=== PATIENT | male | born 1935 | race Caucasian/White ===

== ENCOUNTER → 2018-06-23 | Day surgery (SDC) | payer OTHER ==
[~2018-06-23] MED LIST: Dextrose 5%-0.9% NaCl 1,000 ML IV SCH; LORazepam 2 MG/ML SDV IVPUSH ONE; Lactated Ringers 1,000 ML IV SCH; Propofol 200 MG/20 ML SDV ONE; fentaNYL 100 MCG/2 ML SDV ONE
--- NOTE | 2018-06-23 19:03 | EDM.PDOC ---
ED HPI GENERAL MEDICAL PROBLEM - General Chief Complaint: ENT Problem Stated Complaint: CAN'T SWALLOW/NAUSEA Time Seen by Provider: 06/23/18 18:50 Source of Information: Reports: Patient, RN History Limitations: Reports: No Limitations - History of Present Illness INITIAL COMMENTS - FREE TEXT/NARRATIVE: 83 yo male presents with inability to keep anything down since about noon today when he ate a piece of chicken. Had this problem in the past and was scoped and nothing abnormal was found on EGD. Has a hx of kidney transplant. Gets most of his health care at the [place]. Onset: Today Onset Date: 06/23/18 Onset Time: 12:00 Duration: Hour(s):, Constant Location: Reports: Neck, Chest (esophagus) Quality: Reports: Pressure Severity: Moderate Improves with: Reports: None Worsens with: Reports: None Context: Reports: Other (hx of prior esophageal obstructions.) Associated Symptoms: Reports: Chest Pain (esophageal pressure.), Nausea/ Vomiting (minimal nausea). 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) Upper Epigastric Pain Score (Numeric/FACES): 2 - Related Data Allergies Allergy/AdvReac Type Severity Reaction Status Date / Time Sulfa (Sulfonamide Allergy Rash Verified 06/23/18 18:27 Antibiotics) Home Meds: Home Meds Aspirin [Halfprin] 81 mg PO DAILY 10/22/14 [History] Mycophenolate Mofetil [Cellcept] 1,000 mg PO BID 10/22/14 [History] Ranitidine [Zantac] 150 mg PO BID 10/22/14 [History] cycloSPORINE [Cyclosporine] 50 mg PO DAILY 10/22/14 [History] cycloSPORINE [Cyclosporine] 75 mg PO BEDTIME 10/22/14 [History] predniSONE [Prednisone] 2.5 mg PO DAILY 10/22/14 [History] Allopurinol [Zyloprim] 1 tab PO BEDTIME 05/17/18 [History] Apixaban [Eliquis] 1 tab PO BID 05/17/18 [History] Insulin Glarg,Human.Rec.Analog [Lantus] 50 unit SUBCUT BEDTIME 05/17/18 [History ] Magnesium Oxide 1 tab PO DAILY 05/17/18 [History] Pravastatin [Pravachol] 40 mg PO BEDTIME 05/17/18 [History] predniSONE [Prednisone] 5 mg PO BEDTIME 05/17/18 [History] Past Medical History HEENT History: Reports: Cataract, Impaired Vision Cardiovascular History: Reports: Afib, High Cholesterol Gastrointestinal History: Reports: GERD Genitourinary History: Reports: Other (See Below) Other Genitourinary History: right kidney transplant 1998 Musculoskeletal History: Reports: Arthritis Endocrine/Metabolic History: Reports: Diabetes, Type II, Other (See Below) Other Endocrine/Metabolic History: 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 fri. from [place] [facility] (Cancer) History: Reports: Basal Cell Carcinoma Dermatologic History: Reports: Other (See Below) Other Dermatologic History: basal cell carcinoma - Past Surgical History HEENT Surgical History: Reports: Cataract Surgery GI Surgical History: Reports: Cholecystectomy, EGD Musculoskeletal Surgical History: Reports: Knee Replacement, Shoulder Surgery Social & Family History - Tobacco Use Smoking Status *Q: Never Smoker Second Hand Smoke Exposure: No - Caffeine Use Caffeine Use: Reports: Coffee, Tea - Recreational Drug Use Recreational Drug Use: No ED ROS ENT - Review of Systems Review Of Systems: See Below Constitutional: Reports: No Symptoms HEENT: Reports: No Symptoms Respiratory: Reports: No Symptoms Cardiovascular: Reports: No Symptoms Endocrine: Reports: No Symptoms GI/Abdominal: Reports: Difficulty Swallowing, Vomiting. Denies: Nausea : Reports: No Symptoms Musculoskeletal: Reports: No Symptoms Skin: Reports: No Symptoms Neurological: Reports: No Symptoms ED EXAM, ENT - Physical Exam Exam: See Below Exam Limited By: No Limitations General Appearance: Alert, WD/WN, No Apparent Distress Eye Exam: Bilateral Eye: Normal Inspection Ears: Normal External Exam, Normal Canal, Hearing Grossly Normal, Normal TMs Nose: Normal Inspection, Normal Mucousa, No Blood Mouth/Throat: Normal Inspection, Normal Lips, Normal Oropharynx Head: Atraumatic, Normocephalic Neck: Normal Inspection, Supple, Non-Tender Respiratory/Chest: No Respiratory Distress, Lungs Clear, Normal Breath Sounds, No Accessory Muscle Use Cardiovascular: Regular Rate, Rhythm, No Edema GI/Abdominal: Normal Bowel Sounds, Soft, Non-Tender, No Distention Back: Normal Inspection. No: CVA Tenderness (R), CVA Tenderness (L) Extremities: Normal Inspection, Normal Range of Motion, Non-Tender, No Pedal Edema Neurological: Alert, Oriented, CN II-XII Intact, Normal Cognition, No Motor/ Sensory Deficits Psychiatric: Normal Affect, Normal Mood Skin: Warm, Dry, Intact, Normal Color, No Rash Lymphatic: No Adenopathy Course - Vital Signs Text/Narrative:: Dr. Milad dozier @ [id number] Chicken removed in surgery, no apparent definite esophageal pathology identified to cause the obstruction. Last Recorded V/S: Last Vital Signs Temp 35.2 C 06/23/18 21:56 Pulse 73 06/23/18 21:56 Resp 16 06/23/18 21:56 BP 107/68 06/23/18 21:56 Pulse Ox 96 06/23/18 21:56 - Orders/Labs/Meds Orders: Active Orders 24 hr Category Date Time Status UA W/MICROSCOPIC [URIN] Stat Lab 06/23/18 18:54 Ordered Dextrose 5%-0.9% NaCl [Dextrose 5%-Normal Saline] 1,000 Med 06/23/18 19:45 Active ml IV ASDIRECTED Medication Orders Dextrose/Sodium Chloride (Dextrose 5%-Normal Saline) 1,000 mls @ 150 mls/hr IV ASDIRECTED SHARRON Last Admin: 06/23/18 19:50 Dose: 150 mls/hr Labs: Laboratory Tests 06/23/18 06/23/18 Range/Units 18:45 18:45 WBC 13.5 H (4.5-11.0) K/uL RBC 5.20 (4.30-5.90) M/uL Hgb 15.5 H (12.0-15.0) g/dL Hct 47.7 (40.0-54.0) % MCV 92 (80-98) fL MCH 30 (27-31) pg MCHC 33 (32-36) % Plt Count 213 (150-400) K/uL Sodium 140 (140-148) mmol/L Potassium 3.8 (3.6-5.2) mmol/L Chloride 105 (100-108) mmol/L Carbon Dioxide 28 (21-32) mmol/L Anion Gap 6.6 (5.0-14.0) mmol/L BUN 30 H (7-18) mg/dL Creatinine 1.7 H (0.8-1.3) mg/dL Est Cr Clr Drug Dosing 32.92 mL/min Estimated GFR (MDRD) 39 L (>60) Glucose 63 L (74-106) mg/dL Calcium 9.3 (8.5-10.1) mg/dL Meds: Medications Generic Name Dose Route Start Last Admin Trade Name Bhavin PRN Reason Stop Dose Admin Dextrose/Sodium Chloride 1,000 mls @ 150 mls/hr 06/23/18 19:45 06/23/18 19:50 Dextrose 5%-Normal Saline IV 150 mls/hr ASDIRECTED SHARRON Administration Discontinued Medications Generic Name Dose Route Start Last Admin Trade Name Bhavin PRN Reason Stop Dose Admin Fentanyl Confirm 06/23/18 20:38 Sublimaze Administered 06/23/18 20:39 Dose 100 mcg .ROUTE .STK-MED ONE Lactated Ringer's 1,000 mls @ 500 mls/hr 06/23/18 19:00 06/23/18 19:09 Ringers, Lactated IV 500 mls/hr ASDIRECTED SHARRON Administration Lorazepam 1 mg 06/23/18 18:55 06/23/18 19:10 Ativan IVPUSH 06/23/18 18:56 1 mg ONETIME ONE Administration Propofol Confirm 06/23/18 20:38 Diprivan 20 Ml Administered 06/23/18 20:39 Dose 200 mg .ROUTE .STK-MED ONE Propofol Confirm 06/23/18 21:03 Diprivan 20 Ml Administered 06/23/18 21:04 Dose 200 mg .ROUTE .STK-MED ONE Departure - Departure Time of Disposition: 22:30 Disposition: Home, Self-Care 01 Condition: Good Clinical Impression: Esophageal obstruction due to food impaction - Discharge Information *PRESCRIPTION DRUG MONITORING PROGRAM REVIEWED*: No *COPY OF PRESCRIPTION DRUG MONITORING REPORT IN PATIENT MARIANA: No Referrals: PCP,None [Primary Care Provider] - Forms: ED Department Discharge - My Orders Last 24 Hours: My Active Orders 06/23/18 18:54 UA W/MICROSCOPIC [URIN] Stat 06/23/18 19:45 Dextrose 5%-0.9% NaCl [Dextrose 5%-Normal Saline] 1,000 ml IV ASDIRECTED - Assessment/Plan Last 24 Hours: My Active Orders 06/23/18 18:54 UA W/MICROSCOPIC [URIN] Stat 06/23/18 19:45 Dextrose 5%-0.9% NaCl [Dextrose 5%-Normal Saline] 1,000 ml IV ASDIRECTED
--- NOTE | 2018-06-24 07:50 | OR ---
DATE OF PROCEDURE: 06/23/2018 PREOPERATIVE DIAGNOSIS: Obstructing esophageal foreign body, chicken. POSTOPERATIVE DIAGNOSES: 1. Obstructing esophageal foreign body, chicken. 2. Hiatal hernia. PROCEDURE: Esophagogastroduodenoscopy with removal of obstructing esophageal foreign body, chicken. SURGEON: Tae Stinson MD ANESTHESIA: IV anesthesia with monitored anesthesia care. INDICATION: This 83-year-old white male ate chicken today for lunch. He is unable to handle his secretions now. He presents to the emergency room and request was made for upper endoscopy to relieve his obstructing esophageal foreign body. Apparently, he had problems like this in the past, treated in [place] with nothing found as the etiology. I counseled him for upper endoscopy with possible biopsy and/or removal of any obstructing foreign bodies we encountered, and he gave his informed consent to proceed. DESCRIPTION OF PROCEDURE: The patient was placed in the left lateral decubitus position. IV anesthesia was administered by the Anesthesia Service. Time-out was held. The flexible video Olympus upper endoscope was passed through his mouth into esophagus. In the esophagus, we encountered some fluid and foreign body consistent with fragments of chicken. We aspirated the fluid free. We used multiple techniques to remove the chicken including a couple of baskets, a four-prong grasper, a three-prong grasper, and biopsy forceps. We did remove a lot of the material above the obstructing bolus of food. We reached the bolus of food. We broke it up with biopsy forceps and easily passed into the stomach. We passed the scope in the stomach, down into the duodenum, and then slowly withdrew it. The duodenum appeared unremarkable. Stomach appeared unremarkable. When we retroflexed in the stomach; however, we did notice a hiatal hernia. The scope was then straightened and brought up through the GE junction. This did not appear to be obviously strictured. The scope was then brought up through the remainder of the esophagus, which appeared clear, and was removed. He tolerated the procedure well. Tae Stinson MD /[id number]
== END ==
LOC: JP.ED 17:56 → JP.SDS 20:36
PROVIDERS: ATTEND Surgery
DX: T18.128A Food in esophagus causing other injury, initial encounter (principal); K44.9 Diaphragmatic hernia without obstruction or gangrene; I48.91 Unspecified atrial fibrillation; E78.00 Pure hypercholesterolemia, unspecified; E11.9 Type 2 diabetes mellitus without complications; M19.90 Unspecified osteoarthritis, unspecified site; Z88.0 Allergy status to penicillin; Z88.2 Allergy status to sulfonamides; Z79.4 Long term (current) use of insulin; Z79.82 Long term (current) use of aspirin; Z79.899 Other long term (current) drug therapy; X58.XXXA Exposure to other specified factors, initial encounter
CPT/HCPCS: 36415; 43247; 80048; 82962; 85027; 96361; 96374; 99284; J2060; J2704; J3010; J7120

== ENCOUNTER 2020-11-15 13:14 | Emergency (ER) | payer OTHER, MEDICARE ==
[2020-11-15] MEDS ORDERED: HYDROmorphone 0.5 MG/0.5 ML Syringe IVPUSH ONE ×2 (13:24→14:59)
--- NOTE | 2020-11-15 13:32 | EDM.PDOC ---
<Jason Rocha G - Last Filed: 11/15/20 17:24> ED HPI GENERAL MEDICAL PROBLEM - General Chief Complaint: Lower Extremity Injury/Pain Stated Complaint: MEDICAL VIA [facility]TH Time Seen by Provider: 11/15/20 13:15 Source of Information: Reports: Patient, Old Records, RN History Limitations: Reports: No Limitations - History of Present Illness INITIAL COMMENTS - FREE TEXT/NARRATIVE: 85 yo male brought in by EMS after a fall outside his home due to slipping on the ice. Has L leg external rotation, and pain with any movement of that L leg. Refused pain meds in the ambulance due to no pain at rest. Was not dizzy before he fell. No other injuries reported. PHx of renal transplant. [facility] most of [facility] care [facility] [place] [facility]. 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) - Related Data Allergies Allergy/AdvReac Type Severity Reaction Status Date / Time Sulfa (Sulfonamide Allergy Rash Verified 11/15/20 13:23 Antibiotics) Home Meds: Home Meds cycloSPORINE [Cyclosporine] 50 mg PO BID 10/22/14 [History] mycophenolate mofetiL [Cellcept] 750 mg PO BID 10/22/14 [History] Apixaban [Eliquis] 1 tab PO BID 05/17/18 [History] Insulin Glarg,Human.Rec.Analog [Lantus] 22 unit SUBCUT DAILY 05/17/18 [History] Magnesium Oxide 1 tab PO DAILY 05/17/18 [History] Pravastatin [Pravachol] 40 mg PO BEDTIME 05/17/18 [History] allopurinoL [Zyloprim] 1 tab PO BEDTIME 05/17/18 [History] predniSONE [Prednisone] 5 mg PO BEDTIME 05/17/18 [History] Alogliptin Benzoate [Alogliptin] 25 mg PO DAILY 11/15/20 [History] Cholecalciferol (Vitamin D3) [Vitamin D3] 1,000 unit PO DAILY 11/15/20 [History] Famotidine 20 mg PO BEDTIME 11/15/20 [History] Isosorbide Mononitrate [Isosorbide Mononitrate ER] 15 mg PO DAILY 11/15/20 [Hi story] Levothyroxine 25 mcg PO ACBREAKFAST 11/15/20 [History] Metoprolol Succinate [Toprol XL 100mg] 100 mg PO DAILY 11/15/20 [History] Simethicone 80 mg PO TID PRN 11/15/20 [History] valACYclovir HCl [Valtrex] 500 mg PO DAILY 11/15/20 [History] Past Medical History HEENT History: Reports: Cataract, Impaired Vision Cardiovascular History: Reports: Afib, High Cholesterol Gastrointestinal History: Reports: GERD Genitourinary History: Reports: Other (See Below) Other Genitourinary History: right kidney transplant 1998 Musculoskeletal History: Reports: Arthritis, Fracture Endocrine/Metabolic History: Reports: Diabetes, Type II, Other (See Below) Other Endocrine/Metabolic History: 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 fri. from [place] [facility] (Cancer) History: Reports: Basal Cell Carcinoma Dermatologic History: Reports: Other (See Below) Other Dermatologic History: basal cell carcinoma - Past Surgical History HEENT Surgical History: Reports: Cataract Surgery GI Surgical History: Reports: Cholecystectomy, EGD Musculoskeletal Surgical History: Reports: Knee Replacement, Shoulder Surgery Social & Family History - Tobacco Use Tobacco Use Status *Q: Never Tobacco User - Caffeine Use Caffeine Use: Reports: Coffee - Recreational Drug Use Recreational Drug Use: No Review of Systems - Review of Systems Review Of Systems: See Below Constitutional: Reports: No Symptoms Musculoskeletal: Reports: Leg Pain (L hip area only with movement) Skin: Reports: No Symptoms Neurological: Reports: No Symptoms ED EXAM, GENERAL - Physical Exam Exam: See Below Exam Limited By: No Limitations General Appearance: Alert, WD/WN, No Apparent Distress Eye Exam: Bilateral Eye: Normal Inspection Ears: Normal External Exam, Normal Canal, Hearing Grossly Normal Ear Exam: Bilateral Ear: Auricle Normal, Canal Normal Nose: Normal Inspection, No Blood Throat/Mouth: Normal Inspection, Normal Lips, Normal Oropharynx, Normal Voice, No Airway Compromise Head: Atraumatic, Normocephalic Neck: Normal Inspection, Non-Tender Respiratory/Chest: No Respiratory Distress, Lungs Clear, No Accessory Muscle Use, Decreased Breath Sounds Cardiovascular: Regular Rate, Rhythm, No Edema GI/Abdominal: Normal Bowel Sounds, Soft, Non-Tender, No Distention Extremities: No Pedal Edema, Limited Range of Motion (of L hip due to pain, L leg externally rotated). No: Normal Inspection, Normal Range of Motion, Non- Tender, Pedal Edema, Increased Warmth, Redness Neurological: Alert, Oriented, CN II-XII Intact, Normal Cognition, No Motor/Sensory Deficits Psychiatric: Normal Affect, Normal Mood Skin Exam: Warm, Dry, Intact, Normal Color, No Rash Course - Vital Signs Text/Narrative:: Dr. Silva called @ 1447h, advises transfer Called [facility], they have no ortho coverage Called [facility] @ 1555h, discussed with Dr. Carrasquilol, ortho, @ 1557h - Radiology Interpretation Free Text/Narrative:: CXR-neg L hip [id number] hip fx CT left hip- CT Results Date: 11/15/20 Departure - Departure Disposition: DC/Tfer to Other Condition: Fair Clinical Impression: Intertrochanteric fracture of left hip Qualifiers: Encounter type: initial encounter Fracture type: closed Fracture alignment: displaced Qualified Code(s): S72.142A - Displaced intertrochanteric fracture of left femur, initial encounter for closed fracture - Discharge Information Referrals: PCP,None [Primary Care Provider] - Forms: ED Department Discharge <Wagner Mitchell - Last Filed: 11/15/20 19:20> Course - Vital Signs Last Recorded V/S: Last Vital Signs Temp 36.3 C 11/15/20 13:27 Pulse 84 11/15/20 18:36 Resp 18 11/15/20 13:27 BP 131/89 11/15/20 18:36 Pulse Ox 92 L 11/15/20 18:36 - Orders/Labs/Meds Orders: Active Orders 24 hr Category Date Time Status UA W/MICROSCOPIC [URIN] Stat Lab 11/15/20 13:26 Ordered Lactated Ringers [Ringers, Lactated] 1,000 ml Med 11/15/20 14:15 Active IV ASDIRECTED Medication Orders Lactated Ringer's (Ringers, Lactated) 1,000 mls @ 150 mls/hr IV ASDIRECTED SHARRON Last Admin: 11/15/20 14:30 Dose: 150 mls/hr Documented by: ROIKCAL Labs: Laboratory Tests 11/15/20 11/15/20 11/15/20 Range/Units 13:41 13:41 13:56 WBC 9.2 (4.5-11.0) K/uL RBC 4.36 (4.30-5.90) M/uL Hgb 14.2 (12.0-15.0) g/dL Hct 45.0 (40.0-54.0) % MCV 103 H (80-98) fL MCH 33 H (27-31) pg MCHC 32 (32-36) % Plt Count 171 (150-400) K/uL Sodium 143 (140-148) mmol/L Potassium 4.2 (3.6-5.2) mmol/L Chloride 105 (100-108) mmol/L Carbon Dioxide 28 (21-32) mmol/L Anion Gap 10.1 (5.0-14.0) mmol/L BUN 25 H (7-18) mg/dL Creatinine 1.4 H (0.8-1.3) mg/dL Est Cr Clr Drug Dosing 39.60 mL/min Estimated GFR (MDRD) 48 L (>60) Glucose 249 H (74-106) mg/dL Calcium 8.8 (8.5-10.1) mg/dL SARS-CoV-2 RNA (KRISTEN) Negative (NEGATIVE) Meds: Medications Generic Name Dose Route Start Last Admin Trade Name Freq PRN Reason Stop Dose Admin Lactated Ringer's 1,000 mls @ 150 mls/hr 11/15/20 14:15 11/15/20 14:30 Ringers, Lactated IV 150 mls/hr ASDIRECTED SHARRON Administration Discontinued Medications Generic Name Dose Route Start Last Admin Trade Name Freq PRN Reason Stop Dose Admin Acetaminophen 1,000 mg 11/15/20 17:28 11/15/20 17:32 Tylenol Extra Strength PO 11/15/20 17:29 1,000 mg ONETIME ONE Administration Hydromorphone HCl 0.5 mg 11/15/20 13:24 11/15/20 13:44 Dilaudid IVPUSH 11/15/20 13:25 0.5 mg ONETIME ONE Administration Hydromorphone HCl 0.5 mg 11/15/20 14:59 11/15/20 15:05 Dilaudid IVPUSH 11/15/20 15:00 0.5 mg ONETIME ONE Administration - Re-Assessments/Exams Free Text/Narrative Re-Assessment/Exam: 11/15/20 19:00 I discussed the case with Dr. Carrasquillo, orthopedists from [facility] who agrees to accept the patient in transfer if the hospitalist feels comfortable managing the patient given his renal transplant and immunosuppressive therapy. I did discuss the case with the hospitalist who agreed with the admission. I did discuss with both that the patient was also on Eliquis for chronic atrial fibrillation. We will arrange for transport once they give us a room assignment. Departure - Departure Time of Disposition: 19:20 Sepsis Event Note (ED) - Focused Exam Vital Signs: Vital Signs Temp Pulse Resp BP Pulse Ox 11/15/20 18:36 84 131/89 92 L 11/15/20 15:54 60 130/76 11/15/20 13:27 36.3 C 76 18 156/78 H 96 11/15/20 13:20 36.3 C 76 18 156/78 H 96
[2020-11-15] MEDS ORDERED: Lactated Ringers 1,000 ML IV SCH (14:15)
--- NOTE | 2020-11-15 14:57 | CR ---
CHEST: Portable 11/15/2020 at 1359 CLINICAL HISTORY:Suspected hip fracture COMPARISON:None FINDINGS: There is elevation of the right hemidiaphragm which is likely chronic. Heart is mildly enlarged pulmonary vascularity is normal. There are atherosclerotic changes in the aorta.. Lungs are generally hyperaerated. Impression: Chronic elevation right hemidiaphragm Mild cardiomegaly Mild emphysematous change
--- NOTE | 2020-11-15 14:58 | CR ---
Hip Min 2V or 3V Lt CLINICAL HISTORY: Fall FINDINGS: There is a candidate intertrochanteric fracture of the left femur. There is mild displacement. IMPRESSION: Comminuted displaced intertrochanteric fracture left hip
[2020-11-15] MEDS ORDERED: Acetaminophen 500 MG Tab PO ONE (17:28)
--- NOTE | 2020-11-15 18:28 | CRLCT ---
Indication: Evaluate acute left hip fracture. Technique: Spiral CT examination of the pelvis is performed without contrast enhancement. 2 millimeter thick axial sections are obtained of the entire pelvis along with 2 millimeter thick sagittal, axial, and coronal images through the left hip with bone technique. Please note that all CT scans at this facility use dose modulation, iterative reconstruction, and/or weight-based dosing when appropriate to reduce radiation dose to as low as reasonably achievable. Comparison: Plain films of the left hip from today. Findings: There is an acute, prominently impacted, transverse fracture of the basicervical and intertrochanteric region, with approximately 1 centimeter of lateral displacement of the femoral neck fracture fragments and mild varus of the major fracture fragments. The left femoral head and acetabulum are intact and are in anatomic alignment. There is mild primary osteoarthritis of the left hip with mild joint space narrowing and mild sclerosis of the articular surfaces. The right hip is intact with no sign of fracture or dislocation. There is moderate primary osteoarthritis of the right hip with prominent joint space narrowing, moderate sclerosis of the articular surfaces, mild subchondral cyst formation, and mild marginal osteophyte formation. There is mild primary osteoarthritis of both sacroiliac joints, left greater than right. There are bridging osteophytes on the left, without bridging osteophytes on the right. There is no sign of pelvic or sacral fracture. There is a right pelvic transplant kidney with a nonobstructive 3 millimeter calculus in the lower pole. The renal parenchyma is normal in density and thickness. There is no sign of hydronephrosis or hydroureter. The appendix cannot be identified, and there is no sign of any inflammatory process in the area of the appendix to suggest appendicitis. There is minimal diverticulosis of the sigmoid colon with no sign of diverticulitis. The colon and small bowel in the pelvis are otherwise normal in appearance. The prostate is mildly enlarged. There is a TURP defect in the prostate. The urinary bladder is normal in appearance. There is no sign of pelvic or inguinal mass or adenopathy. Impression: Acute, comminuted, prominently impacted, moderately displaced, transverse fracture of the basicervical and intertrochanteric regions of the left hip with major fracture fragments in mild varus. 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 Moderate primary osteoarthritis of the right hip. Mild primary osteoarthritis of the sacroiliac joints bilaterally, with fusion on the left. No sign of hydronephrosis of the right transplant kidney. 3 millimeter nonobstructive calculus in the lower pole of the right transplant kidney. Mild enlargement of the prostate with TURP defect. Minimal sigmoid diverticulosis with no sign of diverticulitis. Please note that all CT scans at this facility use dose modulation, iterative reconstruction, and/or weight-based dosing when appropriate to reduce radiation dose to as low as reasonably achievable. Dictated by Mamadou Brigsg MD @ Nov 15 2020 6:19PM Signed by Dr. Mamadou Briggs @ Nov 15 2020 6:28PM
== END 2020-11-15 20:11 | disposition other institution (70) ==
LOC: JP.ED 13:14
DX: S72.142A Displaced intertrochanteric fracture of left femur, initial encounter for closed fracture (principal); I48.91 Unspecified atrial fibrillation; E78.00 Pure hypercholesterolemia, unspecified; K21.9 Gastro-esophageal reflux disease without esophagitis; E11.9 Type 2 diabetes mellitus without complications; Z88.2 Allergy status to sulfonamides; Z79.01 Long term (current) use of anticoagulants; Z79.4 Long term (current) use of insulin; Z79.899 Other long term (current) drug therapy; Z20.822 Contact with and (suspected) exposure to COVID-19; W00.0XXA Fall on same level due to ice and snow, initial encounter
CPT/HCPCS: 36415; 71045; 73502; 73700; 80048; 85027; 87635; 96374; 96376; 99285; A9270; J1170; J7120; 99284; U0002

== ENCOUNTER 2022-09-15 02:04 | Emergency (ER) | payer OTHER ==
[2022-09-15 02:46] LABS: ESTIMATED GFR 41 mL/min (>60)
== END 2022-09-15 04:00 | disposition home or self-care (01) ==
LOC: JP.ED 02:04
DX: K62.5 Hemorrhage of anus and rectum (principal); K60.2 Anal fissure, unspecified; I48.91 Unspecified atrial fibrillation; E78.00 Pure hypercholesterolemia, unspecified; E11.9 Type 2 diabetes mellitus without complications; Z88.2 Allergy status to sulfonamides; Z79.01 Long term (current) use of anticoagulants; Z79.4 Long term (current) use of insulin; Z79.899 Other long term (current) drug therapy
CPT/HCPCS: 36415; 74019; 74019-26; 80053; 82272; 85025; 85610; 85730; 86850; 86900; 86901; 99283

== ENCOUNTER 2022-10-06 12:32 | Emergency (ER) | payer OTHER | END 2022-10-06 14:10 | disposition home or self-care (01) | LOC: JP.ED 12:32 | DX: K62.5 Hemorrhage of anus and rectum (principal); E11.9 Type 2 diabetes mellitus without complications; Z79.52 Long term (current) use of systemic steroids; Z79.01 Long term (current) use of anticoagulants; Z88.2 Allergy status to sulfonamides; Z79.899 Other long term (current) drug therapy; Z79.4 Long term (current) use of insulin; Z90.49 Acquired absence of other specified parts of digestive tract | CPT/HCPCS: 36415; 80048; 82272; 85025; 86850; 86900; 86901; 99283 ==

== ENCOUNTER 2022-10-06 21:06 | Emergency (ER) | payer MEDICARE, OTHER ==
[2022-10-06] MEDS ORDERED: Sodium Chloride 0.9% 1,000 ML IV SCH (21:45)
== END 2022-10-07 07:17 | disposition home or self-care (01) ==
LOC: JP.ED 21:06
DX: K62.5 Hemorrhage of anus and rectum (principal); I48.91 Unspecified atrial fibrillation; E78.00 Pure hypercholesterolemia, unspecified; K21.9 Gastro-esophageal reflux disease without esophagitis; M19.90 Unspecified osteoarthritis, unspecified site; E11.9 Type 2 diabetes mellitus without complications; Z88.8 Allergy status to other drugs, medicaments and biological substances; Z88.0 Allergy status to penicillin; Z88.2 Allergy status to sulfonamides; Z79.4 Long term (current) use of insulin; Z79.01 Long term (current) use of anticoagulants; Z79.82 Long term (current) use of aspirin; Z79.899 Other long term (current) drug therapy
CPT/HCPCS: 36415; 85018; 85025; 96360; 96361; 99283; J7030

== ENCOUNTER 2022-10-07 07:21 | Day surgery (SDC) | payer MEDICARE, OTHER ==
[2022-10-07] MEDS ORDERED: fentaNYL 50 MCG/ML SDV ONE (07:47)
[2022-10-07] MEDS ORDERED: Propofol 200 MG/20 ML SDV ONE (07:48)
[2022-10-07] MEDS ORDERED: Lactated Ringers 1,000 ML IV SCH (08:04)
[2022-10-07] MEDS ORDERED: Dextrose 5%-Lactated Ringers 1,000 ML IV SCH (09:00)
== END 2022-10-07 10:40 | disposition home or self-care (01) ==
LOC: JP.SDS 07:21
PROVIDERS: ATTEND Family Medicine
DX: D12.0 Benign neoplasm of cecum (principal); D12.3 Benign neoplasm of transverse colon; K57.30 Diverticulosis of large intestine without perforation or abscess without bleeding; I10 Essential (primary) hypertension; E78.5 Hyperlipidemia, unspecified; I73.9 Peripheral vascular disease, unspecified; K21.9 Gastro-esophageal reflux disease without esophagitis; E11.9 Type 2 diabetes mellitus without complications; Z79.899 Other long term (current) drug therapy; Z88.0 Allergy status to penicillin; Z88.2 Allergy status to sulfonamides; Z88.8 Allergy status to other drugs, medicaments and biological substances
CPT/HCPCS: 45380; 88305; J2704; J3010; J7120

== ENCOUNTER 2022-12-03 20:37 | Emergency (ER) | payer MEDICARE, OTHER ==
[2022-12-03] MEDS ORDERED: fentaNYL 50 MCG/ML SDV IM ONE (21:07)
[2022-12-03] MEDS ORDERED: Diphtheria,Pertussis(Acell),Tetanus Vaccine 0.5 ML Syringe IM ONE (21:07)
[2022-12-03] MEDS ORDERED: Bacitracin Oint 1 GM U/D Packet TOP ONE (21:39)
== END 2022-12-03 22:20 | disposition home or self-care (01) ==
LOC: JP.ED 20:37
DX: S41.112A Laceration without foreign body of left upper arm, initial encounter (principal); S00.83XA Contusion of other part of head, initial encounter; E11.22 Type 2 diabetes mellitus with diabetic chronic kidney disease; N18.9 Chronic kidney disease, unspecified; I48.91 Unspecified atrial fibrillation; E78.00 Pure hypercholesterolemia, unspecified; K21.9 Gastro-esophageal reflux disease without esophagitis; Z79.01 Long term (current) use of anticoagulants; Z88.0 Allergy status to penicillin; Z88.2 Allergy status to sulfonamides; Z88.8 Allergy status to other drugs, medicaments and biological substances; Z79.899 Other long term (current) drug therapy; Z23 Encounter for immunization; W18.30XA Fall on same level, unspecified, initial encounter
CPT/HCPCS: 12002; 73080; 90471; 90715; 96372; 99283; J3010

== ENCOUNTER 2022-12-04 14:52 | Emergency (ER) | payer MEDICARE, OTHER ==
[2022-12-04] MEDS ORDERED: fentaNYL 100 MCG/2 ML SDV IVPUSH ONE (15:27)
[2022-12-04] MEDS ORDERED: LORazepam 2 MG/ML SDV IVPUSH ONE (15:28)
[2022-12-04] MEDS ORDERED: Bacitracin Oint 28.35 GM Tube TOP ONE (16:00)
== END 2022-12-04 16:30 | disposition home or self-care (01) ==
LOC: JP.ED 14:52
DX: Z48.01 Encounter for change or removal of surgical wound dressing (principal); E11.22 Type 2 diabetes mellitus with diabetic chronic kidney disease; K21.9 Gastro-esophageal reflux disease without esophagitis; I48.91 Unspecified atrial fibrillation; E78.00 Pure hypercholesterolemia, unspecified; Z88.0 Allergy status to penicillin; Z88.2 Allergy status to sulfonamides; Z88.8 Allergy status to other drugs, medicaments and biological substances; Z79.01 Long term (current) use of anticoagulants; Z79.4 Long term (current) use of insulin; Z79.899 Other long term (current) drug therapy
CPT/HCPCS: 96374; 96375; 99282; J2060; J3010; 99283

== ENCOUNTER 2023-04-24 10:15 | Emergency (ER) | payer OTHER, MEDICARE | END 2023-04-24 11:34 | disposition left against medical advice (07) | LOC: JP.ED 10:15 | DX: Z53.21 Procedure and treatment not carried out due to patient leaving prior to being seen by health care provider (principal) ==

== ENCOUNTER 2023-09-06 02:14 | Inpatient (IN) | payer OTHER, MEDICARE ==
[2023-09-06] MEDS: Sodium Chloride 0.9% 1,000 ML IV SCH ×5 (02:36→23:35)
[2023-09-06 02:44] LABS: BASOPHILS PERCENT AUTO 0.2 % (0.1-1.3); HEMATOCRIT 44.1 % (38.4-49.7); HEMOGLOBIN 14.9 g/dL (12.9-16.9); IMMATURE GRAN ABSOLUTE AUTO 0.25 K/uL (0.00-0.23); IMMATURE GRAN PERCENT AUTO 1.9 % (0.0-0.7); LYMPHOCYTES ABSOLUTE AUTO 0.48 K/uL (0.8-3.3); LYMPHOCYTES PERCENT AUTO 3.7 % (11.4-47.7); MEAN CORPUSCULAR HGB CONC 33.8 g/dL (31.6-35.5); MEAN CORPUSCULAR VOLUME 103.5 fL (81.4-99.0); MONOCYTES ABSOLUTE AUTO 1.07 K/uL (0.20-0.90); MONOCYTES PERCENT AUTO 8.3 % (3.3-12.6); NEUTROPHILS ABSOLUTE AUTO 11.13 K/uL (1.0-7.6); NEUTROPHILS PERCENT AUTO 85.9 % (40.0-78.1); PLATELET COUNT,PLT 163 K/uL (130-375); RED BLOOD CELL COUNT 4.26 M/uL (4.14-5.76)
[2023-09-06 02:56] LABS: BASOPHILS ABSOLUTE AUTO 0.02 K/uL (0.00-0.10)
[2023-09-06] MEDS ORDERED: Levofloxacin/Dextrose 5%-Water 500 MG in Premix Bag 1 BAG IV ONE (02:57)
[2023-09-06] MEDS ORDERED: Acetaminophen 500 MG Tab PO ONE (02:58)
[2023-09-06 03:04] LABS: A/G RATIO 0.8 (1.2-2.2); ALANINE AMINOTRANSFERASE,ALT 12 U/L (12-78); ALBUMIN 2.4 g/dL (3.4-5.0); ALKALINE PHOSPHATASE 80 U/L (46-116); ANION GAP 12.1 mmol/L (5.0-14.0); ASPARTATE AMNIOTRANSFERASE,AST 32 U/L (15-37); BILIRUBIN TOTAL 0.9 mg/dL (0.2-1.0); BLOOD UREA NITROGEN,BUN 39 mg/dL (7-18); CALCIUM 8.3 mg/dL (8.5-10.1); CARBON DIOXIDE,CO2 24 mmol/L (21-32); CHLORIDE,CL 104 mmol/L (100-108); CREATININE 1.6 mg/dL (0.8-1.3); EST CRCL DRUG DOSING (CG) 27.64 mL/min; ESTIMATED GFR 41 mL/min (>60); GLUCOSE RANDOM 169 mg/dL (74-106); POTASSIUM,K 4.6 mmol/L (3.6-5.2); PROTEIN TOTAL,TP 5.5 g/dL (6.4-8.2); SODIUM,NA 140 mmol/L (140-148)
[2023-09-06 03:13] LABS: TROPONIN I HIGH SENSITIVITY 92.9 pg/mL (<=60.3)
[2023-09-06 03:27] LABS: INFLUENZA A NAA NEGATIVE (NEGATIVE); INFLUENZA B NAA NEGATIVE (NEGATIVE); RESPIRATORY SYNCYTIAL VIR NAA NEGATIVE (NEGATIVE)
[2023-09-06 03:29] LABS: CORONAVIRUS COVID-19 NAA POSITIVE (NEGATIVE)
[2023-09-06 08:55] LABS: APPEARANCE,URINE SLIGHTLY CLOUDY (CLEAR); BILIRUBIN,URINE NEGATIVE (NEGATIVE); COLOR,URINE YELLOW (YELLOW); GLUCOSE,URINE NEGATIVE (NEGATIVE); KETONES,URINE NEGATIVE (NEGATIVE); LEUKOCYTE ESTERASE,URINE NEGATIVE (NEGATIVE); NITRITE,URINE NEGATIVE (NEGATIVE); OCCULT BLOOD,URINE NEGATIVE (NEGATIVE); PH,URINE 5.5 (5.0-8.0); PROTEIN,URINE 100 mg/dL (NEGATIVE); UROBILINOGEN,URINE 0.2 EU/dL (0.2-1.0)
[2023-09-06 09:00] LABS: AMORPHOUS SEDIMENT,URINE NOT SEEN; BACTERIA,URINE FEW; EPITHELIAL CELLS,URINE NOT SEEN; MUCUS,URINE NOT SEEN; RBC,URINE 0-5 (0-5); WBC,URINE 0-5 (0-5)
[2023-09-06] MEDS ORDERED: Ondansetron 4 MG Tab.DIS PO PRN (10:04)
[2023-09-06] MEDS ORDERED: Benzonatate 100 MG Cap PO PRN (10:04)
[2023-09-06] MEDS ORDERED: Magnesium Hydroxide 400 MG/5 ML Susp 30 ML Cup PO PRN (10:04)
[2023-09-06] MEDS ORDERED: guaiFENesin/Dextromethorphan 100-10 MG/5 ML Soln 10 ML Cup PO PRN (10:04)
[2023-09-06] MEDS ORDERED: Ondansetron 4 MG/2 ML SDV IV PRN (10:04)
[2023-09-06] MEDS ORDERED: Apixaban 5 MG Tab PO SCH (10:04)
[2023-09-06] MEDS: Mycophenolate Mofetil 250 MG Cap PO SCH ×2 (10:42→21:03)
[2023-09-06] MEDS: Apixaban 2.5 MG Tab PO SCH ×2 (10:42→20:52)
[2023-09-06] MEDS: valACYclovir 1,000 MG Tab PO SCH (10:42)
[2023-09-06] MEDS: Dexamethasone 2 MG Tab PO SCH (10:43)
[2023-09-06] MEDS: Metoprolol Succinate 50 MG Tab.ER PO SCH (10:43)
[2023-09-06] MEDS: CYCLOSPORINE MODIFIED 25 MG PO SCH (10:44)
[2023-09-06] MEDS: Insulin Lispro 100 Unit/ML 3 ML KwikPen SUBCUT SCH ×3 (10:56→20:51)
[2023-09-06] MEDS: Lactobacillus Rhamnosus GG (Probiotic) Cap PO SCH (20:52)
[2023-09-06] MEDS: Pantoprazole 40 MG Tab.CR PO SCH (20:52)
[2023-09-06] MEDS: Allopurinol 100 MG Tab PO SCH (20:52)
[2023-09-06] MEDS ORDERED: CYCLOSPORINE MODIFIED 25 MG PO SCH (21:00)
[2023-09-07] MEDS: Acetaminophen 325 MG Tab PO PRN ×2 (01:14→22:51)
[2023-09-07] MEDS: LORazepam 0.5 MG Tab PO PRN ×2 (01:44→22:51)
[2023-09-07 05:43] LABS: HEMATOCRIT 37.4 % (38.4-49.7); HEMOGLOBIN 12.6 g/dL (12.9-16.9); MEAN CORPUSCULAR HEMOGLOBIN 34.7 pg (31.6-35.5); MEAN CORPUSCULAR HGB CONC 33.7 g/dL (31.6-35.5); RED BLOOD CELL COUNT 3.63 M/uL (4.14-5.76); WHITE BLOOD CELL COUNT,WBC 7.4 K/uL (3.2-11.0)
[2023-09-07 06:00] LABS: CALCIUM 7.5 mg/dL (8.5-10.1); CREATININE 1.1 mg/dL (0.8-1.3); EST CRCL DRUG DOSING (CG) 40.18 mL/min; POTASSIUM,K 4.6 mmol/L (3.6-5.2)
[2023-09-07 06:05] LABS: ANION GAP 17.6 mmol/L (5.0-14.0)
[2023-09-07] MEDS: Insulin Lispro 100 Unit/ML 3 ML KwikPen SUBCUT SCH ×4 (08:42→20:49)
[2023-09-07] MEDS: Mycophenolate Mofetil 250 MG Cap PO SCH ×2 (08:47→22:51)
[2023-09-07] MEDS: Lactobacillus Rhamnosus GG (Probiotic) Cap PO SCH ×2 (08:48→22:51)
[2023-09-07] MEDS: Apixaban 2.5 MG Tab PO SCH ×2 (08:49→22:50)
[2023-09-07] MEDS: Isosorbide Mononitrate 30 MG Tab.ER PO SCH (08:50)
[2023-09-07] MEDS: CYCLOSPORINE MODIFIED 25 MG PO SCH (08:56)
[2023-09-07] MEDS: Metoprolol Succinate 50 MG Tab.ER PO SCH (08:56)
[2023-09-07] MEDS: valACYclovir 1,000 MG Tab PO SCH (08:57)
[2023-09-07] MEDS: Dexamethasone 2 MG Tab PO SCH (10:35)
[2023-09-07] MEDS: Sodium Chloride 0.9% 1,000 ML IV SCH (12:20)
[2023-09-07] MEDS: Insulin Glargine,Human Rec. Analog 100 Units/ML 3 ML Pen SUBCUT SCH (17:14)
[2023-09-07] MEDS: Pantoprazole 40 MG Tab.CR PO SCH (22:50)
[2023-09-07] MEDS: Allopurinol 100 MG Tab PO SCH (22:50)
[2023-09-07] MEDS: Levofloxacin 250 MG Tab PO SCH (22:51)
[2023-09-08] MEDS: Insulin Lispro 100 Unit/ML 3 ML KwikPen SUBCUT SCH ×4 (08:05→21:45)
[2023-09-08] MEDS: Lactobacillus Rhamnosus GG (Probiotic) Cap PO SCH ×2 (08:23→21:46)
[2023-09-08] MEDS: Metoprolol Succinate 50 MG Tab.ER PO SCH (08:25)
[2023-09-08] MEDS: Mycophenolate Mofetil 250 MG Cap PO SCH ×2 (08:25→21:46)
[2023-09-08] MEDS: Isosorbide Mononitrate 30 MG Tab.ER PO SCH (08:26)
[2023-09-08] MEDS: Insulin Glargine,Human Rec. Analog 100 Units/ML 3 ML Pen SUBCUT SCH (08:29)
[2023-09-08] MEDS: valACYclovir 1,000 MG Tab PO SCH (08:31)
[2023-09-08] MEDS: Dexamethasone 2 MG Tab PO SCH (10:45)
[2023-09-08] MEDS: Apixaban 2.5 MG Tab PO SCH ×2 (10:45→21:46)
[2023-09-08] MEDS: Allopurinol 100 MG Tab PO SCH (21:45)
[2023-09-08] MEDS: Pantoprazole 40 MG Tab.CR PO SCH (21:46)
[2023-09-09] MEDS: Nystatin Susp 100,000 Unit/ML 5 ML UD Cup PO SCH ×4 (05:54→21:50)
[2023-09-09] MEDS: Insulin Lispro 100 Unit/ML 3 ML KwikPen SUBCUT SCH ×4 (07:45→21:48)
[2023-09-09] MEDS: Isosorbide Mononitrate 30 MG Tab.ER PO SCH (08:56)
[2023-09-09] MEDS: Metoprolol Succinate 50 MG Tab.ER PO SCH (08:59)
[2023-09-09] MEDS: Lactobacillus Rhamnosus GG (Probiotic) Cap PO SCH ×2 (09:00→21:48)
[2023-09-09] MEDS: Apixaban 2.5 MG Tab PO SCH ×2 (09:00→21:48)
[2023-09-09] MEDS: valACYclovir 1,000 MG Tab PO SCH (09:01)
[2023-09-09] MEDS: Mycophenolate Mofetil 250 MG Cap PO SCH ×2 (09:01→21:48)
[2023-09-09] MEDS: Insulin Glargine,Human Rec. Analog 100 Units/ML 3 ML Pen SUBCUT SCH (09:02)
[2023-09-09] MEDS: Dexamethasone 2 MG Tab PO SCH (11:42)
[2023-09-09] MEDS: Levofloxacin 250 MG Tab PO SCH (21:47)
[2023-09-09] MEDS: Allopurinol 100 MG Tab PO SCH (21:48)
[2023-09-09] MEDS: Pantoprazole 40 MG Tab.CR PO SCH (21:48)
[2023-09-10] MEDS: Nystatin Susp 100,000 Unit/ML 5 ML UD Cup PO SCH ×4 (05:54→21:19)
[2023-09-10] MEDS: Insulin Lispro 100 Unit/ML 3 ML KwikPen SUBCUT SCH ×4 (08:06→21:11)
[2023-09-10] MEDS: Lactobacillus Rhamnosus GG (Probiotic) Cap PO SCH ×2 (08:07→21:19)
[2023-09-10] MEDS: valACYclovir 1,000 MG Tab PO SCH (08:07)
[2023-09-10] MEDS: Apixaban 2.5 MG Tab PO SCH ×2 (08:07→21:19)
[2023-09-10] MEDS: Mycophenolate Mofetil 250 MG Cap PO SCH ×2 (08:08→21:19)
[2023-09-10] MEDS: Metoprolol Succinate 50 MG Tab.ER PO SCH (08:24)
[2023-09-10] MEDS: Isosorbide Mononitrate 30 MG Tab.ER PO SCH (08:24)
[2023-09-10] MEDS ORDERED: Insulin Glargine,Human Rec. Analog 100 Units/ML 3 ML Pen SUBCUT ONE (09:00)
[2023-09-10] MEDS ORDERED: Insulin Glargine,Human Rec. Analog 100 Units/ML 3 ML Pen SUBCUT SCH (09:00)
[2023-09-10] MEDS: Dexamethasone 2 MG Tab PO SCH (10:53)
[2023-09-10] MEDS: Allopurinol 100 MG Tab PO SCH (21:19)
[2023-09-10] MEDS: Pantoprazole 40 MG Tab.CR PO SCH (21:19)
[2023-09-10] MEDS: Acetaminophen 325 MG Tab PO PRN (22:48)
[2023-09-10] MEDS: Melatonin 3 MG Tab PO PRN (22:48)
[2023-09-11] MEDS: Nystatin Susp 100,000 Unit/ML 5 ML UD Cup PO SCH ×5 (05:20→21:27)
[2023-09-11] MEDS: Insulin Lispro 100 Unit/ML 3 ML KwikPen SUBCUT SCH ×4 (08:47→21:14)
[2023-09-11] MEDS: Lactobacillus Rhamnosus GG (Probiotic) Cap PO SCH ×2 (08:47→21:28)
[2023-09-11] MEDS: Isosorbide Mononitrate 30 MG Tab.ER PO SCH (08:48)
[2023-09-11] MEDS: Apixaban 2.5 MG Tab PO SCH ×2 (08:48→21:28)
[2023-09-11] MEDS: Mycophenolate Mofetil 250 MG Cap PO SCH ×2 (08:49→21:28)
[2023-09-11] MEDS: valACYclovir 1,000 MG Tab PO SCH (08:49)
[2023-09-11] MEDS: Metoprolol Succinate 50 MG Tab.ER PO SCH (08:51)
[2023-09-11] MEDS ORDERED: Insulin Glargine,Human Rec. Analog 100 Units/ML 3 ML Pen SUBCUT SCH (09:00)
[2023-09-11] MEDS ORDERED: Non-Formulary Medication 1 Each (Prednisone [Prednisone] 10 MG Tablet) PO SCH (10:30)
[2023-09-11] MEDS: predniSONE 5 MG Tab PO SCH (11:52)
[2023-09-11] MEDS: Levofloxacin 250 MG Tab PO SCH (21:28)
[2023-09-11] MEDS: Pantoprazole 40 MG Tab.CR PO SCH (21:28)
[2023-09-11] MEDS: Allopurinol 100 MG Tab PO SCH (21:28)
[2023-09-11] MEDS: Melatonin 3 MG Tab PO PRN (21:31)
[2023-09-12] MEDS: Nystatin Susp 100,000 Unit/ML 5 ML UD Cup PO SCH ×5 (05:41→21:00)
[2023-09-12] MEDS: Insulin Lispro 100 Unit/ML 3 ML KwikPen SUBCUT SCH ×4 (07:48→21:13)
[2023-09-12] MEDS: Lactobacillus Rhamnosus GG (Probiotic) Cap PO SCH ×2 (08:16→20:15)
[2023-09-12] MEDS: Apixaban 2.5 MG Tab PO SCH ×2 (08:16→20:16)
[2023-09-12] MEDS: predniSONE 5 MG Tab PO SCH (08:17)
[2023-09-12] MEDS: Mycophenolate Mofetil 250 MG Cap PO SCH ×2 (08:17→20:15)
[2023-09-12] MEDS: Isosorbide Mononitrate 30 MG Tab.ER PO SCH (08:17)
[2023-09-12] MEDS: Metoprolol Succinate 50 MG Tab.ER PO SCH (08:17)
[2023-09-12] MEDS: valACYclovir 1,000 MG Tab PO SCH (08:18)
[2023-09-12] MEDS: Sennosides/Docusate Sodium 50-8.6 MG Tab PO PRN (08:32)
[2023-09-12] MEDS: Insulin Glargine,Human Rec. Analog 100 Units/ML 3 ML Pen SUBCUT SCH (10:09)
[2023-09-12] MEDS: Melatonin 3 MG Tab PO SCH (20:15)
[2023-09-12] MEDS: Pantoprazole 40 MG Tab.CR PO SCH (20:16)
[2023-09-12] MEDS: Allopurinol 100 MG Tab PO SCH (20:17)
[2023-09-12] MEDS ORDERED: Melatonin 3 MG Tab PO SCH (21:00)
[2023-09-13] MEDS: Nystatin Susp 100,000 Unit/ML 5 ML UD Cup PO SCH ×4 (05:49→21:12)
[2023-09-13] MEDS: predniSONE 5 MG Tab PO SCH (09:04)
[2023-09-13] MEDS: Lactobacillus Rhamnosus GG (Probiotic) Cap PO SCH ×2 (09:04→21:11)
[2023-09-13] MEDS: Apixaban 2.5 MG Tab PO SCH ×2 (09:04→21:13)
[2023-09-13] MEDS: Mycophenolate Mofetil 250 MG Cap PO SCH ×2 (09:05→21:11)
[2023-09-13] MEDS: valACYclovir 1,000 MG Tab PO SCH (09:05)
[2023-09-13] MEDS: Metoprolol Succinate 50 MG Tab.ER PO SCH (09:06)
[2023-09-13] MEDS: Isosorbide Mononitrate 30 MG Tab.ER PO SCH (09:06)
[2023-09-13] MEDS: Insulin Glargine,Human Rec. Analog 100 Units/ML 3 ML Pen SUBCUT SCH (09:09)
[2023-09-13] MEDS: Insulin Lispro 100 Unit/ML 3 ML KwikPen SUBCUT SCH ×4 (09:11→21:10)
[2023-09-13] MEDS: Sennosides/Docusate Sodium 50-8.6 MG Tab PO PRN (10:20)
[2023-09-13] MEDS ORDERED: Sodium Phosphate,Monobasic/Sodium Phosphate,Dibasic Enema 133 ML Bottle RECTAL PRN (11:24)
[2023-09-13] MEDS ORDERED: Polyethylene Glycol 3350 Powder 17 GM Packet PO ONE (12:30)
[2023-09-13] MEDS ORDERED: Bisacodyl 10 MG Supp RECTAL ONE (12:30)
[2023-09-13] MEDS: Pantoprazole 40 MG Tab.CR PO SCH (21:12)
[2023-09-13] MEDS: Melatonin 3 MG Tab PO SCH (21:12)
[2023-09-13] MEDS: Allopurinol 100 MG Tab PO SCH (21:12)
[2023-09-14] MEDS: Nystatin Susp 100,000 Unit/ML 5 ML UD Cup PO SCH ×4 (05:56→21:15)
[2023-09-14] MEDS: Insulin Lispro 100 Unit/ML 3 ML KwikPen SUBCUT SCH ×4 (07:41→21:15)
[2023-09-14] MEDS: Lactobacillus Rhamnosus GG (Probiotic) Cap PO SCH ×2 (08:10→21:17)
[2023-09-14] MEDS: Isosorbide Mononitrate 30 MG Tab.ER PO SCH (08:10)
[2023-09-14] MEDS: Mycophenolate Mofetil 250 MG Cap PO SCH ×2 (08:11→21:16)
[2023-09-14] MEDS: Apixaban 2.5 MG Tab PO SCH ×2 (08:11→21:17)
[2023-09-14] MEDS: Insulin Glargine,Human Rec. Analog 100 Units/ML 3 ML Pen SUBCUT SCH (08:12)
[2023-09-14] MEDS: Metoprolol Succinate 50 MG Tab.ER PO SCH (08:13)
[2023-09-14] MEDS: predniSONE 5 MG Tab PO SCH (08:13)
[2023-09-14] MEDS: valACYclovir 1,000 MG Tab PO SCH (08:16)
[2023-09-14] MEDS: Melatonin 3 MG Tab PO SCH (21:15)
[2023-09-14] MEDS: Pantoprazole 40 MG Tab.CR PO SCH (21:17)
[2023-09-14] MEDS: Allopurinol 100 MG Tab PO SCH (21:17)
[2023-09-15] MEDS: Nystatin Susp 100,000 Unit/ML 5 ML UD Cup PO SCH ×2 (05:40→09:34)
[2023-09-15] MEDS: Insulin Lispro 100 Unit/ML 3 ML KwikPen SUBCUT SCH ×4 (09:29→21:36)
[2023-09-15] MEDS: Insulin Glargine,Human Rec. Analog 100 Units/ML 3 ML Pen SUBCUT SCH (09:30)
[2023-09-15] MEDS: Isosorbide Mononitrate 30 MG Tab.ER PO SCH (09:31)
[2023-09-15] MEDS: Lactobacillus Rhamnosus GG (Probiotic) Cap PO SCH ×2 (09:34→20:29)
[2023-09-15] MEDS: Metoprolol Succinate 50 MG Tab.ER PO SCH (09:34)
[2023-09-15] MEDS: Mycophenolate Mofetil 250 MG Cap PO SCH ×2 (09:34→20:29)
[2023-09-15] MEDS: valACYclovir 1,000 MG Tab PO SCH (09:34)
[2023-09-15] MEDS: Apixaban 2.5 MG Tab PO SCH ×2 (09:34→20:29)
[2023-09-15] MEDS: predniSONE 5 MG Tab PO SCH (09:35)
[2023-09-15] MEDS: Clotrimazole 10 MG Troche PO SCH ×2 (17:01→21:36)
[2023-09-15] MEDS: Melatonin 3 MG Tab PO SCH (20:29)
[2023-09-15] MEDS: Pantoprazole 40 MG Tab.CR PO SCH (20:30)
[2023-09-15] MEDS: Allopurinol 100 MG Tab PO SCH (20:30)
[2023-09-16 05:25] LABS: HEMOGLOBIN 13.3 g/dL (12.9-16.9); MEAN CORPUSCULAR HEMOGLOBIN 34.7 pg (31.6-35.5); MEAN CORPUSCULAR HGB CONC 34.1 g/dL (31.6-35.5); MEAN CORPUSCULAR VOLUME 101.8 fL (81.4-99.0); RED BLOOD CELL COUNT 3.83 M/uL (4.14-5.76); WHITE BLOOD CELL COUNT,WBC 10.8 K/uL (3.2-11.0)
[2023-09-16 05:37] LABS: ANION GAP 7.5 mmol/L (5.0-14.0); CALCIUM 8.6 mg/dL (8.5-10.1); CREATININE 1.4 mg/dL (0.8-1.3); EST CRCL DRUG DOSING (CG) 31.57 mL/min; POTASSIUM,K 4.3 mmol/L (3.6-5.2)
[2023-09-16] MEDS: Clotrimazole 10 MG Troche PO SCH ×5 (05:56→21:17)
[2023-09-16] MEDS: Insulin Lispro 100 Unit/ML 3 ML KwikPen SUBCUT SCH ×4 (07:39→21:16)
[2023-09-16] MEDS: valACYclovir 1,000 MG Tab PO SCH (07:59)
[2023-09-16] MEDS: Mycophenolate Mofetil 250 MG Cap PO SCH ×2 (07:59→21:16)
[2023-09-16] MEDS: Isosorbide Mononitrate 30 MG Tab.ER PO SCH (08:00)
[2023-09-16] MEDS: Lactobacillus Rhamnosus GG (Probiotic) Cap PO SCH ×2 (08:00→21:17)
[2023-09-16] MEDS: predniSONE 5 MG Tab PO SCH (08:00)
[2023-09-16] MEDS: Apixaban 2.5 MG Tab PO SCH ×2 (08:01→21:17)
[2023-09-16] MEDS: Insulin Glargine,Human Rec. Analog 100 Units/ML 3 ML Pen SUBCUT SCH (08:01)
[2023-09-16] MEDS: Metoprolol Succinate 50 MG Tab.ER PO SCH (08:05)
[2023-09-16] MEDS: Melatonin 3 MG Tab PO SCH (21:17)
[2023-09-16] MEDS: Pantoprazole 40 MG Tab.CR PO SCH (21:18)
[2023-09-16] MEDS: Allopurinol 100 MG Tab PO SCH (21:18)
[2023-09-17] MEDS: Clotrimazole 10 MG Troche PO SCH ×2 (05:41→09:59)
[2023-09-17] MEDS: Insulin Lispro 100 Unit/ML 3 ML KwikPen SUBCUT SCH (07:55)
[2023-09-17] MEDS: Lactobacillus Rhamnosus GG (Probiotic) Cap PO SCH (08:15)
[2023-09-17] MEDS: Apixaban 2.5 MG Tab PO SCH (08:15)
[2023-09-17] MEDS: Isosorbide Mononitrate 30 MG Tab.ER PO SCH (08:15)
[2023-09-17] MEDS: Mycophenolate Mofetil 250 MG Cap PO SCH (08:15)
[2023-09-17] MEDS: Metoprolol Succinate 50 MG Tab.ER PO SCH (08:16)
[2023-09-17] MEDS: predniSONE 5 MG Tab PO SCH (08:16)
[2023-09-17] MEDS: valACYclovir 1,000 MG Tab PO SCH (08:17)
[2023-09-17] MEDS: Insulin Glargine,Human Rec. Analog 100 Units/ML 3 ML Pen SUBCUT SCH (09:00)
== END 2023-09-17 11:00 | DRG 871 ==
LOC: JP.ED 02:14 → JP.ICU 09:36
PROVIDERS: ADMIT Internal Medicine; ATTEND Internal Medicine
DX: A41.89 Other specified sepsis (principal); I48.91 Unspecified atrial fibrillation; J18.9 Pneumonia, unspecified organism; N18.9 Chronic kidney disease, unspecified; U07.1 COVID-19; Z94.0 Kidney transplant status; I24.89 Other forms of acute ischemic heart disease; D84.9 Immunodeficiency, unspecified; E86.0 Dehydration; I48.0 Paroxysmal atrial fibrillation; N18.32 Chronic kidney disease, stage 3b; E78.00 Pure hypercholesterolemia, unspecified; K21.9 Gastro-esophageal reflux disease without esophagitis; K59.00 Constipation, unspecified; M19.90 Unspecified osteoarthritis, unspecified site; Z96.659 Presence of unspecified artificial knee joint; E11.22 Type 2 diabetes mellitus with diabetic chronic kidney disease; Z88.0 Allergy status to penicillin; Z79.01 Long term (current) use of anticoagulants; Z98.49 Cataract extraction status, unspecified eye; Z90.49 Acquired absence of other specified parts of digestive tract; Z98.890 Other specified postprocedural states; Z79.4 Long term (current) use of insulin; Z86.010 Personal history of colon polyps; Z79.899 Other long term (current) drug therapy; Z88.2 Allergy status to sulfonamides; Z88.8 Allergy status to other drugs, medicaments and biological substances
CPT/HCPCS: 0241U; 36415; 71045; 80048; 80053; 81001; 82947; 83605; 84145; 84484; 85025; 85027; 86140; 87040; 87070; 87205; 93005; 93010; 94667; 96361; 96365; 97110-GP; 97116-GP; 97161-GP; 97530-GP; 99222; 99232; 99239; 99285; 99285-25; A9270-GY; J1815; J1815-GY; J1956; J7030; J7512; J7515; J8540

== ENCOUNTER 2024-04-27 18:59 | Emergency (ER) | payer OTHER, MEDICARE ==
[2024-04-27] MEDS ORDERED: Sodium Chloride 0.9% 10 ML Syringe FLUSH PRN (19:43)
[2024-04-27] MEDS: Sodium Chloride 0.9% 1,000 ML IV SCH (19:55)
[2024-04-27 20:04] LABS: BASOPHILS ABSOLUTE AUTO 0.02 K/uL (0.00-0.10); BASOPHILS PERCENT AUTO 0.1 % (0.1-1.3); HEMATOCRIT 38.3 % (38.4-49.7); HEMOGLOBIN 13.1 g/dL (12.9-16.9); IMMATURE GRAN ABSOLUTE AUTO 0.12 K/uL (0.00-0.23); IMMATURE GRAN PERCENT AUTO 0.8 % (0.0-0.7); LYMPHOCYTES ABSOLUTE AUTO 0.73 K/uL (0.8-3.3); LYMPHOCYTES PERCENT AUTO 4.6 % (11.4-47.7); MEAN CORPUSCULAR HEMOGLOBIN 34.7 pg (31.6-35.5); MEAN CORPUSCULAR HGB CONC 34.2 g/dL (31.6-35.5); MEAN CORPUSCULAR VOLUME 101.3 fL (81.4-99.0); MONOCYTES ABSOLUTE AUTO 1.86 K/uL (0.20-0.90); MONOCYTES PERCENT AUTO 11.8 % (3.3-12.6); NEUTROPHILS ABSOLUTE AUTO 12.98 K/uL (1.0-7.6); NEUTROPHILS PERCENT AUTO 82.7 % (40.0-78.1); PLATELET COUNT,PLT 201 K/uL (130-375); RED BLOOD CELL COUNT 3.78 M/uL (4.14-5.76); WHITE BLOOD CELL COUNT,WBC 15.7 K/uL (3.2-11.0)
[2024-04-27 20:50] LABS: ALANINE AMINOTRANSFERASE,ALT 24 U/L (12-78); ALBUMIN 2.4 g/dL (3.4-5.0); ALKALINE PHOSPHATASE 96 U/L (46-116); ASPARTATE AMNIOTRANSFERASE,AST 26 U/L (15-37); BILIRUBIN TOTAL 0.8 mg/dL (0.2-1.0); BLOOD UREA NITROGEN,BUN 46 mg/dL (7-18); CALCIUM 8.5 mg/dL (8.5-10.1); CARBON DIOXIDE,CO2 26 mmol/L (21-32); CHLORIDE,CL 103 mmol/L (100-108); CREATININE 1.4 mg/dL (0.8-1.3); EST CRCL DRUG DOSING (CG) 29.48 mL/min; ESTIMATED GFR 48 mL/min (>60); GLUCOSE RANDOM 175 mg/dL (74-106); POTASSIUM,K 5.2 mmol/L (3.6-5.2); PROTEIN TOTAL,TP 4.8 g/dL (6.4-8.2); SODIUM,NA 135 mmol/L (140-148)
[2024-04-27 20:51] LABS: ANION GAP 11.2 mmol/L (5.0-14.0)
[2024-04-27 21:10] LABS: INR 1.8; PROTHROMBIN TIME 17.8 sec (9.2-10.6)
[2024-04-27] MEDS: Loperamide 2 MG Cap PO ONE (22:14)
[2024-04-28] MEDS: Loperamide 2 MG Cap PO ONE (04:40)
== END 2024-04-28 08:05 ==
LOC: JP.ED 18:59
DX: R53.1 Weakness (principal); E78.00 Pure hypercholesterolemia, unspecified; I48.91 Unspecified atrial fibrillation; E11.9 Type 2 diabetes mellitus without complications; Z86.16 Personal history of COVID-19; N18.9 Chronic kidney disease, unspecified; Z79.4 Long term (current) use of insulin; Z79.899 Other long term (current) drug therapy; Z79.01 Long term (current) use of anticoagulants; Z88.0 Allergy status to penicillin; Z88.2 Allergy status to sulfonamides; Z88.8 Allergy status to other drugs, medicaments and biological substances
CPT/HCPCS: 36415; 74176; 80053; 83605; 83735; 84145; 85025; 85610; 87040; 96360; 96361; 99285; 99285-25; A9270-GY; J7030